=== PATIENT | male | born 2000 | race African-American/Black ===

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

== ENCOUNTER 2023-02-22 02:54 | Emergency (ER) | payer OTHER ==
[2023-02-22] MEDS ORDERED: Boostrix 0.5 ML (Tdap) VIAL (>/=7 yrs of age) ONE (05:08)
== END 2023-02-22 05:22 | disposition home or self-care (01) ==
LOC: ERS 02:54
DX: S61.412A Laceration without foreign body of left hand, initial encounter (principal); W25.XXXA Contact with sharp glass, initial encounter; Z23 Encounter for immunization
CPT/HCPCS: 90471; 90715

== ENCOUNTER 2023-02-25 04:00 | Emergency (ER) | payer OTHER ==
[2023-02-25] MEDS ORDERED: Cephalexin 250 MG CAP ONE (06:22)
== END 2023-02-25 14:24 | disposition home or self-care (01) ==
LOC: ERS 04:00
DX: S60.552A Superficial foreign body of left hand, initial encounter (principal); W25.XXXA Contact with sharp glass, initial encounter